=== PATIENT | female | born 1975 | race Two or more races ===

== ENCOUNTER 2016-11-04 17:03 | Emergency (ER) | payer MEDICAID ==
[~2016-11-04] VITALS: Ht 157.5 cm; Wt 72.6 kg
[2016-11-04 17:03] VITALS: BP 105/63
== END 2016-11-04 17:21 | disposition home or self-care (01) ==
LOC: ER 17:06
DX: J02.0 Streptococcal pharyngitis (principal)
CPT/HCPCS: 99283; A4606; Z7610

== ENCOUNTER 2020-03-26 08:22 | Emergency (ER) | payer MEDICAID ==
[~2020-03-26] VITALS: Ht 154.9 cm; Wt 65.8 kg
--- NOTE | 2020-03-26 08:22 | NUR ---
PT BIB SELF C/O ON AND OFF L SIDED CHEST PAIN FOR 3 DAYS. PT IS AAOX4 SUDANESE SPEAKING ONLY, HOOKED TO SCRIPT MANAGER, KEPT RESTED AND COMFORTABLE. WILL CONTINUE TO MONITOR.
--- NOTE | 2020-03-26 09:13 | NUR ---
SEEN AND EXAMINED BY .
[2020-03-26] MEDS ORDERED: MAG HYDROX/AL HYDROX/SIMETH 30 ML UDC ONE (09:18)
[2020-03-26] MEDS ORDERED: LIDOCAINE VISCOUS 2% UD 15 ML UDC ONE (09:18)
[2020-03-26] MEDS ORDERED: FAMOTIDINE (20 MG) 20 MG TABLET ONE (09:18)
[2020-03-26] MEDS: MAG HYDROX/AL HYDROX/SIMETH 30 ML UDC PO ONE (09:22)
[2020-03-26] MEDS: LIDOCAINE VISCOUS 2% UD 15 ML UDC MM ONE (09:22)
[2020-03-26] MEDS: FAMOTIDINE (20 MG) 20 MG TABLET PO ONE (09:22)
[2020-03-26 10:40] VITALS: BP 128/82
--- NOTE | 2020-03-26 10:40 | NUR ---
Patient discharged to home in stable condition. Written and verbal after care instructions given. Patient verbalizes understanding of instruction.
== END 2020-03-26 10:41 | disposition home or self-care (01) ==
LOC: ER 08:37
DX: R07.89 Other chest pain (principal); K21.9 Gastro-esophageal reflux disease without esophagitis
CPT/HCPCS: 71045-TC

== ENCOUNTER 2021-05-30 19:06 | Emergency (ER) | payer MEDICAID ==
[~2021-05-30] VITALS: Ht 152.4 cm; Wt 65.8 kg
--- NOTE | 2021-05-30 20:00 | NUR ---
PT BIB SLEF C/O ABD PAIN AND LOWER BACK PAIN X 2 DAYS. PT IS A/O, RR EVEN AND UNLABORED, NO SOB NOTED. PT CONNECTED TO MONITORS.
[2021-05-30 20:05] VITALS: BP 111/70
[2021-05-30] MEDS ORDERED: ONDANSETRON 4 MG TAB.RAPDIS ONE (20:18)
[2021-05-30] MEDS ORDERED: PHENAZOPYRIDINE HCL 200 MG TABLET ONE (20:18)
[2021-05-30] MEDS ORDERED: IBUPROFEN 600 MG TABLET ONE (20:18)
[2021-05-30] MEDS ORDERED: ONDANSETRON 4 MG TAB.RAPDIS SL ONE (20:30)
[2021-05-30] MEDS ORDERED: PHENAZOPYRIDINE HCL 200 MG TABLET PO ONE (20:30)
[2021-05-30] MEDS ORDERED: IBUPROFEN 600 MG TABLET PO ONE (20:30)
[2021-05-30 21:02] LABS: BILIRUBIN,URINE NEGATIVE (NEGATIVE); COLOR,URINE YELLOW (YELLOW); LEUKOCYTE ESTERASE ,URINE TRACE (NEGATIVE); NITRITE, URINE NEGATIVE (NEGATIVE); PROTEIN,URINE NEGATIVE (NEGATIVE); UGLUCOSE NEGATIVE (NEGATIVE); UROBILINOGEN,URINE 0.2 EU/dL (0.2)
[2021-05-30 21:03] LABS: BACTERIA,URINE None seen /HPF (None Seen); SQUAMOUS EPITHELIAL CELL,UR Few /HPF (None Seen)
[2021-05-30] MEDS ORDERED: PHEN-705 PO (21:34)
[2021-05-30] MEDS ORDERED: NITR100C PO (21:34)
--- NOTE | 2021-05-30 21:42 | NUR ---
Patient discharged to home in stable condition. Rx and Written and verbal after care instructions given. Patient verbalizes understanding of instruction.
== END 2021-05-30 21:43 | disposition home or self-care (01) ==
LOC: ER 19:09
DX: N39.0 Urinary tract infection, site not specified (principal); R10.84 Generalized abdominal pain; M54.50 Low back pain, unspecified
CPT/HCPCS: 81001; 84703; 99283; Q0162